=== PATIENT | male | born 1960 | race African-American/Black ===

== ENCOUNTER → 2017-05-08 | Outpatient (CLI) | payer OTHER | END | disposition home or self-care (01) | LOC: RD 17:03 | DX: M25.551 Pain in right hip (principal) ==

== ENCOUNTER 2017-05-12 17:17 | Emergency (ER) | payer OTHER ==
[~2017-05-12] VITALS: Ht 193 cm; Wt 110.7 kg
[2017-05-12 20:47] VITALS: BP 151/85
== END 2017-05-12 20:53 | disposition home or self-care (01) ==
LOC: ED 17:17
DX: M54.41 Lumbago with sciatica, right side (principal); M48.00 Spinal stenosis, site unspecified; R19.00 Intra-abdominal and pelvic swelling, mass and lump, unspecified site; Z79.899 Other long term (current) drug therapy
CPT/HCPCS: J1170; J1885; J7512; Q0162

== ENCOUNTER → 2017-05-13 | Outpatient (CLI) | payer OTHER | END | disposition home or self-care (01) | LOC: MI 12:54 | PROC: BR39ZZZ Magnetic Resonance Imaging (MRI) of Lumbar Spine (ICD-10-PCS; principal; 2017-05-13) | PROC: BQ30ZZZ Magnetic Resonance Imaging (MRI) of Right Hip (ICD-10-PCS; 2017-05-13) | DX: M25.551 Pain in right hip (principal) ==

== ENCOUNTER → 2017-05-19 | Outpatient (CLI) | payer OTHER ==
[2017-05-20 12:23] LABS: BASOPHIL % 1.3 % (0-2); PLATELET COUNT 355 x10^3mcL (130-400); RED CELL DISTRIBUTION WIDTH 12.4 % (11.5-14.5)
[2017-05-20 12:30] LABS: ALBUMIN 3.9 g/dL (3.4-5.0); BILIRUBIN TOTAL 0.29 mg/dL (0.20-1.00); CALCIUM 9.4 mg/dL (8.5-10.1); CARBON DIOXIDE 27.9 mmol/L (21-32); CREATININE SERUM 1.4 mg/dL (0.7-1.3); POTASSIUM SERUM 4.2 mmol/L (3.5-5.1)
[2017-05-20 12:31] LABS: TOTAL PROTEIN, SERUM 8.5 g/dL (6.4-8.2)
== END | disposition home or self-care (01) ==
LOC: LB 16:41
PROVIDERS: Family Medicine
DX: S72.001A Fracture of unspecified part of neck of right femur, initial encounter for closed fracture (principal); R93.8 Abnormal findings on diagnostic imaging of other specified body structures; Z95.5 Presence of coronary angioplasty implant and graft; X58.XXXA Exposure to other specified factors, initial encounter; Y92.9 Unspecified place or not applicable
CPT/HCPCS: Q0092

== ENCOUNTER → 2017-05-28 | Outpatient (CLI) | payer OTHER | END | disposition home or self-care (01) | LOC: LB 15:27 | DX: M25.551 Pain in right hip (principal) ==

== ENCOUNTER → 2017-06-03 | Outpatient (CLI) | payer OTHER | END | disposition home or self-care (01) | LOC: MI 09:00 | PROC: BQ3 Imaging, Non-Axial Lower Bones, Magnetic Resonance Imaging (MRI) (ICD-10-PCS; principal; 2017-06-03) | DX: R93.8 Abnormal findings on diagnostic imaging of other specified body structures (principal) | CPT/HCPCS: A9579 ==

== ENCOUNTER → 2017-07-14 | Outpatient (CLI) | payer OTHER | END | disposition home or self-care (01) | LOC: CA 12:21 | DX: I25.10 Atherosclerotic heart disease of native coronary artery without angina pectoris (principal) ==

== ENCOUNTER → 2017-08-01 | Outpatient (CLI) | payer OTHER | END | disposition home or self-care (01) | LOC: LB 16:48 | DX: M25.559 Pain in unspecified hip (principal); Z12.11 Encounter for screening for malignant neoplasm of colon ==